=== PATIENT | female | born 1985 | race Caucasian/White ===

== ENCOUNTER 2017-08-20 19:31 | Emergency (ER) | payer OTHER ==
[~2017-08-20] VITALS: Ht 175.3 cm; Wt 79.8 kg
[~2017-08-20 19:31] MED LIST: BETA.05TCA TOP; DIPH50 PO; PROM25 PO; Ultram50 MG PO
[2017-08-20] MEDS ORDERED: Prednisone50 MG PO (21:10)
== END 2017-08-20 21:17 | disposition home or self-care (01) ==
LOC: ER 19:31
DX: L23.7 Allergic contact dermatitis due to plants, except food (principal); F17.200 Nicotine dependence, unspecified, uncomplicated
CPT/HCPCS: 99283

== ENCOUNTER → 2017-12-29 | Outpatient (CLI) | payer OTHER ==
[~2017-12-29] MED LIST changes: +Prednisone50 MG PO
[2017-12-31 22:10] LABS: CHLAMYDIA TRACHOMATIS, NAA Negative (Negative); NEISSERIA GONORRHOEAE, NAA Negative (Negative)
== END | disposition home or self-care (01) ==
LOC: LAB SHORT 15:17 → LAB 15:17
PROVIDERS: Advanced Practice Midwife
DX: Z34.81 Encounter for supervision of other normal pregnancy, first trimester (principal)
CPT/HCPCS: 87491; 87591

== ENCOUNTER → 2018-05-11 | Outpatient (CLI) | payer OTHER ==
[2018-05-11 16:34] LABS: Source, Urine Clean Catch
[2018-05-11 18:03] LABS: Bilirubin, Urine Neg (Neg); Blood, Urine Neg (Neg); Glucose Qualitative, Urine Neg (Neg); Ketones, Urine Neg (Neg); Leukocyte Esterase, Urine 3+ (Neg); Nitrite, Urine Neg (Neg); Protein, Urine Neg (Neg); Specific Gravity, Urine 1.005 (1.003-1.022); Urobilinogen, Urine NORM (Normal); pH, Urine 6.5 (5.0-8.0)
[2018-05-11 18:45] LABS: Appearance, Urine Clear (Clear); Color, Urine Yellow (P-Yellow)
[2018-05-11 18:46] LABS: Bacteria Mod /hpf; Red Blood Cells, Urine 0-2 /hpf (0-2); Squamous Epithelial Cells Few /hpf (Few)
== END | disposition home or self-care (01) ==
LOC: LAB 16:27 → LAB SHORT 16:27
PROVIDERS: Obstetrics & Gynecology
DX: R82.998 Other abnormal findings in urine (principal)
CPT/HCPCS: 81001; 87086

== ENCOUNTER → 2018-05-21 | Outpatient (CLI) | payer OTHER ==
[2018-05-21 13:47] LABS: Appearance, Urine Hazy (Clear); Bilirubin, Urine Neg (Neg); Blood, Urine Neg (Neg); Color, Urine Yellow (P-Yellow); Glucose Qualitative, Urine Neg (Neg); Ketones, Urine Neg (Neg); Leukocyte Esterase, Urine 3+ (Neg); Nitrite, Urine Neg (Neg); Protein, Urine Neg (Neg); Urobilinogen, Urine NORM (Normal)
[2018-05-21 13:59] LABS: Squamous Epithelial Cells Many /hpf (Few)
[2018-05-21 14:00] LABS: Bacteria Mod /hpf; Red Blood Cells, Urine 0-2 /hpf (0-2); White Blood Cells, Urine 50-100 /hpf (0-5)
== END | disposition home or self-care (01) ==
LOC: LAB SHORT 13:27 → LAB 13:27
PROVIDERS: Obstetrics & Gynecology
DX: R82.998 Other abnormal findings in urine (principal)
CPT/HCPCS: 81001; 87086

== ENCOUNTER 2018-05-29 22:31 | Inpatient (IN) | payer OTHER ==
[~2018-05-29] VITALS: Ht 175.3 cm; Wt 99.5 kg
[2018-05-29 23:22] LABS: BASOPHILS ABSOLUTE AUTO 0.02 K/mm3 (0.00-0.23); BASOPHILS PERCENT AUTO 0 % (0-2); EOSINOPHILS ABSOLUTE AUTO 0.16 K/mm3 (0.00-0.68); EOSINOPHILS PERCENT AUTO 2 % (0-6); Hematocrit 32.1 % (33.0-51.0); Hemoglobin 10.5 g/dL (11.5-16.0); IMMATURE GRAN ABSOLUTE AUTO 0.06 K/mm3 (0.00-0.10); IMMATURE GRAN PERCENT AUTO 1 % (0-1); LYMPHOCYTES ABSOLUTE AUTO 1.39 K/mm3 (0.84-5.20); LYMPHOCYTES PERCENT AUTO 17 % (21-46); MONOCYTES ABSOLUTE AUTO 0.66 K/mm3 (0.16-1.47); MONOCYTES PERCENT AUTO 8 % (4-13); Mean Corpuscular HGB 29.4 pg (26.0-34.0); Mean Corpuscular HGB Conc 32.7 g/dL (31.5-36.5); Mean Corpuscular Volume 90 fL (80-100); Mean Platelet Volume 11.1 fL (9.1-12.4); NEUTROPHILS ABSOLUTE AUTO 5.87 K/mm3 (1.96-9.15); NEUTROPHILS PERCENT AUTO 72 % (41-73); Platelet Count 250 K/mm3 (150-400); RDW Coefficient Variation 11.9 % (11.7-14.2); RDW Standard Deviation 39.2 fL (35.1-46.3); Red Blood Cell Count 3.57 M/mm3 (3.80-5.20); White Blood Cell Count 8.16 K/mm3 (4.00-11.30)
--- NOTE | 2018-05-30 17:06 | NUR ---
CONSULT, TODAY. MOM STATES HE BF WELL AFTER AND HAS BEEN SLEEPING SINCE. INSTRUCT IN CHANGES TO EXPECT DURING THE FIRST WEEK WITH FEEDINGS AND WITH BABY AND REFERRED TO BF [facility] AND BF [facility] PAGE [facility], FOR PHOTOS AND INFORMATION. INSTRUCT IN WIDENING HIS LATCH IF SHE FEELS PINCHING AT NIPPLE TIP, OR SEES THE NIPPLE FLATTENED OR COMPRESSION STRIP WHEN HE RELEASES NIPPLE. FURTHER LC OFFERED FOR TOMORROW IF SHE DESIRES. TIRED NOW. BABY ASLEEP ON HER CHEST.
--- NOTE | 2018-05-30 18:05 | NUR ---
pt refused 1600 vitals, states she is in no pain and just feels tired. denies headache, denies blood clots or moderate to heavy bleeding at this time. voiding without difficulty
--- NOTE | 2018-05-30 19:45 | NUR ---
PT DECLINES FUNDAL MASSAGE AT THIS TIME, RN ENCOURAGED PT TO CONTINUE TO PERIODICALLY MASSAGE HER OWN FUNDUS AND TO LET RN KNOW IF HER UTERUS FEELS BOGGY OR IF SHE SOAKS ONE OF THE SMALLER PADS IN AN HOUR OR HAS ANY GOLF BALL SIZE BLOOD CLOTS OR BIGGER, OR IF SHE FEELS AT ANY TIME THAT HER BLEEDING IS MORE THAN IT SHOULD BE. PT AGREES TO NOTIFY RN OF ANY HEAVY BLEEDING OR CONCERNS. PT IS READY FOR BED AND DOES NOT WANT TO BE DISTURBED IF AT ALL POSSIBLE, RN NOTIFIED PT OF Q4H VS REQUIREMENT AND ASKED THAT IF THE PT IS AWAKE DURING THE NIGHT BETWEEN [phone] AND [phone] TO CALL AND RN WILL CHECK THEIR VS THEN TO MINIMIZE INTERUPTIONS TO THEIR SLEEP. RN ENCOURAGED PT TO CALL AT ANY TIME IF SHE NEEDS OR WANTS ANYTHING OR IF SHE HAS ANY QUESTIONS.
[2018-05-31 05:30] LABS: Hematocrit 32.6 % (33.0-51.0); Hemoglobin 10.7 g/dL (11.5-16.0); Mean Corpuscular HGB 29.4 pg (26.0-34.0); Mean Corpuscular HGB Conc 32.8 g/dL (31.5-36.5); Mean Corpuscular Volume 90 fL (80-100); Mean Platelet Volume 11.3 fL (9.1-12.4); Platelet Count 232 K/mm3 (150-400); RDW Standard Deviation 39.2 fL (35.1-46.3); Red Blood Cell Count 3.64 M/mm3 (3.80-5.20); White Blood Cell Count 9.75 K/mm3 (4.00-11.30)
--- NOTE | 2018-05-31 07:19 | NUR ---
PT SOUND ASLEEP. WILL WAIT TO GO IN UNTIL TRAYS ARRIVE. PER PED AND PREVIOUS SHIFT, PARENTS REFUSING MOST INTERVENTIONS.
--- NOTE | 2018-05-31 09:03 | NUR ---
PT UP MOVING IN ROOM, TOOK NB DOWN FOR NB EXAM. REPORTS MINIMAL BLEEDING, NO CLOTS. DECLINES ANYTHING FOR PAIN.
--- NOTE | 2018-05-31 10:08 | NUR ---
CONSULT FOLLOW UP. BABY IS ASLEEP ON MOMS CHEST. SHE STATES HE IS STARTING TO WAKE UP FOR FEEDINGS, NIPPLES ARE NOT GETTING SORE, HE IS DOING A WIDE LATCH AND SUCKLING WELL. PLANS HOME LATER TODAY.
--- NOTE | 2018-05-31 11:40 | NUR ---
PT WORKING ON CERTIFICATE. WOULD LIKE TO TAKE THEIR TIME FOR DISCHARGE, "FEELING RUSHED TO GO HOME."
--- NOTE | 2018-05-31 13:20 | NUR ---
pt declined vitals, but is working on certificate.
--- NOTE | 2018-05-31 15:06 | NUR ---
PT JUST FINISHED WITH BC, RN INSTRUCTED PT SHE NEEDS TO BE DC'D BY 1800.
== END 2018-05-31 17:00 | disposition home or self-care (01) | DRG 807 ==
LOC: OBS 22:31 → BC 22:35 → OBS 22:38 → BC 22:40
PROVIDERS: ADMIT Advanced Practice Midwife
PROC: 10E0XZZ Delivery of Products of Conception, External Approach (ICD-10-PCS; principal; 2018-05-30)
PROC: 0KQM0ZZ Repair Perineum Muscle, Open Approach (ICD-10-PCS; 2018-05-30)
DX: O43.123 Velamentous insertion of umbilical cord, third trimester (principal); Z37.0 Single live birth; O43.193 Other malformation of placenta, third trimester; Z3A.41 41 weeks gestation of pregnancy; O99.824 Streptococcus B carrier state complicating childbirth; O70.1 Second degree perineal laceration during delivery; Z87.891 Personal history of nicotine dependence
CPT/HCPCS: 36415; 85025; 85027; J0290; J1885; J2210; J2590; J3010; J7120